=== PATIENT | male | born 1970 | race African-American/Black ===

== ENCOUNTER 2018-07-30 16:46 | Emergency (ER) | payer OTHER, BC ==
--- NOTE | 2018-07-30 16:55 | PDOC ---
Rapid Medical Evaluation Time Seen by Provider: 07/30/18 16:54 Medical Evaluation: Allergies Allergy/AdvReac Type Severity Reaction Status Date / Time No Known Allergies Allergy Verified 02/08/14 09:29 07/30/18 16:54 I performed a brief in-person evaluation of this patient. Chief complaint is: Right ankle pain s/p fall on Saturday. Pertinent physical exam findings include: Pain/tenderness/swelling right lateral malleolus. Partial weight-bearing. I have ordered the following: Xray. Patient will proceed to the ED for further evaluation. Discharge Disposition - Diagnosis Right ankle pain Qualifiers: Chronicity: acute Qualified Code(s): M25.571 - Pain in right ankle and joints of right foot - Referrals - Patient Instructions - Post Discharge Activity
[2018-07-30 16:57] VITALS: BP 142/80; PULSE 89; TEMP 98.1; BMI 36.0
--- NOTE | 2018-07-30 18:01 | PDOC ---
History of Present Illness - General Chief Complaint: Injury Stated Complaint: RT ANKLE PAIN Time Seen by Provider: 07/30/18 16:54 History Source: Patient Exam Limitations: No Limitations Past History - Past Medical History Allergies/Adverse Reactions: Allergies Allergy/AdvReac Type Severity Reaction Status Date / Time No Known Allergies Allergy Verified 02/08/14 09:29 Home Medications: Ambulatory Orders NK [No Known Home Medication] 07/30/18 COPD: No DVT: No - Surgical History Appendectomy: Yes - Immunization History Immunization Up to Date: Yes - Suicide/Smoking/Psychosocial Hx Smoking Status: No Smoking History: Never smoked Have you smoked in the past 12 months: No Number of Cigarettes Smoked Daily: 4 Cigars Per Day: 0 Information on smoking cessation initiated: No 'Breaking Loose' booklet given: 02/02/13 Hx Alcohol Use: No Drug/Substance Use Hx: No Substance Use Type: None, Marijuana Hx Substance Use Treatment: No *Physical Exam - Vital Signs Last Vital Signs Temp Pulse Resp BP Pulse Ox 98.1 F 89 16 142/80 100 07/30/18 16:54 07/30/18 16:54 07/30/18 16:54 07/30/18 16:54 07/30/18 16:54 - Physical Exam General Appearance: No: Apparent Distress Musculoskeletal: positive: Other (Mild swelling along lateral aspect of R ankle with TTP; no deformity, +pain with movement of R ankle, no trauma noted to R foot) Integumentary: positive: Normal Color Neurologic: positive: Fully Oriented, Alert, Normal Mood/Affect Moderate Sedation - Procedure Monitoring Vital Signs: Procedure Monitoring Vital Signs Temperature 98.1 F 07/30/18 16:54 Pulse Rate 89 07/30/18 16:54 Respiratory Rate 16 07/30/18 16:54 Blood Pressure 142/80 07/30/18 16:54 O2 Sat by Pulse Oximetry (%) 100 07/30/18 16:54 Medical Decision Making - Medical Decision Making 47 y/o M with no sig pmh presents with R ankle pain after slipping on water 3 days ago. Denies LOC, head/neck trauma. Xray negative for fracture Likely R ankle sprain Placed in aircast splint and given crutches 07/30/18 17:58 *DC/Admit/Observation/Transfer Diagnosis at time of Disposition: Right ankle sprain Qualifiers: Encounter type: initial encounter Involved ligament of ankle: unspecified ligament Qualified Code(s): S93.401A - Sprain of unspecified ligament of right ankle, initial encounter - Discharge Dispostion Disposition: HOME Condition at time of disposition: Stable Decision to Admit order: No - Referrals Referrals: Chayo South MD [Primary Care Provider] - 3 days - Patient Instructions Printed Discharge Instructions: DI for Ankle Sprain, How to Use Crutches Additional Instructions: Thank you for choosing [facility]. It was a pleasure taking care of you. No fracture was noted on your xray. You may take Motrin 600 mg every 4 hours by mouth as needed for mild to moderate pain. Take Motrin with food. Since it has been over 48 hours since your injury, recommend warm compresses Keep extremity elevated above level of heart. Return to the Emergency Department if your symptoms worsen or persist or have other concerning symptoms. - Post Discharge Activity Forms/Work/School Notes: Back to Work
== END 2018-07-30 18:05 | disposition home or self-care (01) ==
LOC: JERFT 16:46
PROC: 2W3QX1Z Immobilization of Right Lower Leg using Splint (ICD-10-PCS; principal; 2018-07-30)
DX: S93.401A Sprain of unspecified ligament of right ankle, initial encounter (principal); M25.571 Pain in right ankle and joints of right foot; X58.XXXA Exposure to other specified factors, initial encounter; Y93.89 Activity, other specified; Y92.89 Other specified places as the place of occurrence of the external cause
CPT/HCPCS: 73610-TC-RT-FY; 99281-25